=== PATIENT | male | born 1985 | race Two or more races ===

== ENCOUNTER 2021-01-05 12:30 | Emergency (ER) | payer OTHER ==
[~2021-01-05] VITALS: Ht 167.6 cm; Wt 93.9 kg
--- NOTE | 2021-01-05 13:23 | NUR ---
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
--- NOTE | 2021-01-05 13:49 | NUR ---
PT CAME IN [place] HAVING AN EPISODE OF CHEST PAIN THIS MORNING "FOR A COUPLE MINUTES" AND PT ALSO STATES "I THINK MY BP IS HIGH". PT RESTING IN [facility]. CONNECTED TO ALL MONITORS. EKG COMPLETE
--- NOTE | 2021-01-05 13:57 | NUR ---
ERP AT BS FOR EVAL
[2021-01-05] MEDS ORDERED: SODIUM CHLORIDE FLUSH 10ML SYR IVF ONE (14:00)
--- NOTE | 2021-01-05 14:00 | NUR ---
PT AMBULATORY TO BR WITH UPRIGHT STEADY GAIT & BACK TO BED W/O INCIDENCE
--- NOTE | 2021-01-05 14:16 | NUR ---
PT TO CT
[2021-01-05 14:29] LABS: ALANINE AMINOTRANSFERASE 86 U/L (12-78); ALBUMIN 4.1 g/dL (3.4-5.0); CALCIUM 9.6 mg/dL (8.5-10.1); CREATININE 0.75 mg/dL (0.7-1.3)
--- NOTE | 2021-01-05 14:30 | NUR ---
PT BACK FROM CT, MONITORS IN PLACE. CALL LIGHT WITHIN REACH, BED IN LOWEST POSITION, BED RAILS UP X2. WCTM
[2021-01-05 14:33] LABS: BASOPHILS % (AUTO) 0 % (0-1); EOSINOPHILS % (AUTO) 1 % (1-7); LYMPHOCYTES % (AUTO) 38 % (22-44); MEAN CORPUSCULAR HEMOGLOBIN 30.4 pg (27.5-34.5); MEAN CORPUSCULAR HGB CONC 34.6 g/dL (33.2-36.2); MEAN PLATELET VOLUME 9.3 fL (7.4-10.4); MONOCYTES % (AUTO) 9 % (2-9); NEUTROPHILS % (AUTO) 52 % (42-75); PLATELET COUNT 208 x10^3/uL (130-400); RED BLOOD COUNT 5.17 x10^6/uL (4.38-5.82); RED CELL DISTRIBUTION WIDTH 13.9 % (9.4-14.8)
[2021-01-05 14:34] LABS: ALKALINE PHOSPHATASE 92 U/L (45-117); BILIRUBIN,TOTAL 1.1 mg/dL (0.2-1.0); TOTAL PROTEIN 8.2 g/dL (6.4-8.2); TROPONIN I < 0.015 ng/mL (0.000-0.045)
[2021-01-05 14:39] LABS: ANION GAP 15 mmol/L (5-15); CHLORIDE 104 mmol/L (98-107)
--- NOTE | 2021-01-05 15:28 | NUR ---
PT CONTINUES RESTING ON GURNEY, NADN/VSS. DENIES PAIN. CALL LIGHT WITHIN REACH, BED IN LOWEST POSITION, BED RAILS UP X2. PT STATES NO NEEDS AT THIS TIME
[2021-01-05 15:51] VITALS: BP 142/96
--- NOTE | 2021-01-05 16:01 | NUR ---
Patient given discharge instructions and rx, they have confirmed that they understand the instructions. Patient ambulatory with steady gait.
== END 2021-01-05 16:10 | disposition home or self-care (01) ==
LOC: ED 13:38
DX: I10 Essential (primary) hypertension (principal); R51.9 Headache, unspecified; M79.10 Myalgia, unspecified site; R94.31 Abnormal electrocardiogram [ECG] [EKG]
CPT/HCPCS: 36415; 70450; 80053; 84484; 85025; 93005; 99285